=== PATIENT | female | born 1980 | race American Indian/Alaskan Native ===

== ENCOUNTER 2019-09-14 10:26 | Outpatient (CLI) | payer MEDICAID, OTHER ==
[2019-09-14 11:10] VITALS: BP 118/62
[2019-09-14] MEDS ORDERED: LACTATED RINGERS 1,000 ML ONE (11:39)
[2019-09-14] MEDS ORDERED: LACTATED RINGERS 1,000 ML IV ONE (12:00)
[2019-09-14 12:10] LABS: Hematocrit 41.8 % (30.3-42.9); Hemoglobin 13.9 gm/dl (10.1-14.3); Mean Corpuscular HGB Conc 33 % (30-34); Mean Corpuscular Volume 84 fl (79-97); Platelet Count 351 K/mm3 (140-440); Red Blood Count 4.97 M/mm3 (3.65-5.03); Red Cell Distribution Width 14.5 % (13.2-15.2)
[2019-09-14 12:19] LABS: Bilirubin,Urine NEG (Negative); Blood,Urine SM (Negative); Color,Urine Yellow (Yellow); Mucus,Urine FEW /HPF; Protein,Urine <15 mg/dL mg/dL (Negative); Urobilinogen,Urine < 2.0 mg/dL (<2.0); WBC,Urine < 1.0 /HPF (0.0-6.0)
[2019-09-14] MEDS ORDERED: LACTATED RINGERS 1,000 ML IV SCH (13:00)
[2019-09-14] MEDS ORDERED: HYDROcodone/ACETAMINOPHEN 5-325 MG TAB PO PRN (17:11)
[2019-09-14] MEDS ORDERED: ceFAZolin/Water 2 GM/20 ML 0 GM/0 ML SYRINGE IV ONE (17:20)
== END 2019-09-14 18:13 | disposition home or self-care (01) ==
LOC: TRG 10:26
PROVIDERS: ATTEND Obstetrics & Gynecology
DX: O62.9 Abnormality of forces of labor, unspecified (principal); O09.522 Supervision of elderly multigravida, second trimester; O24.410 Gestational diabetes mellitus in pregnancy, diet controlled; Z3A.22 22 weeks gestation of pregnancy
CPT/HCPCS: 36415; 59025; 81001; 85027; 96361; 96365; J0690; J7120; 96360

== ENCOUNTER 2021-09-06 08:32 | Day surgery (SDC) | payer MEDICAID, OTHER ==
[~2021-09-06 08:32] MED LIST: SODIUM CHLORIDE 0.9% 1000 ML 1,000 ML IV SCH
--- NOTE | 2021-09-06 09:20 | Anesthesia Day of Surgery ---
Anesthesia Day of Surgery - Day of Surgery Patient Examined: Yes Patient H&P Reviewed: Yes Patient is NPO: Yes
--- NOTE | 2021-09-06 09:20 | Anesthesia Consultation ---
Anesthesia Consult and Med Hx Date of service: 09/06/21 - Airway Anesthetic Teeth Evaluation: Good ROM Head & Neck: Adequate Mental/Hyoid Distance: Adequate Mallampati Class: Class II Intubation Access Assessment: Good - Pre-Operative Health Status ASA Pre-Surgery Classification: ASA2 Proposed Anesthetic Plan: MAC - Pulmonary Hx Smoking: No Hx Asthma: No - Cardiovascular System Hx Hypertension: No - Central Nervous System Hx Seizures: No Hx Psychiatric Problems: No - Gastrointestinal Hx Ulcer: Yes Hx Gastroesophageal Reflux Disease: No - Endocrine Hx Renal Disease: No Hx Hypothyroidism: No Hx Hyperthyroidism: No - Hematic Hx Anemia: Yes Hx Sickle Cell Disease: No - Other Systems Hx Alcohol Use: Yes (occas social) Hx Obesity: Yes
[2021-09-06] MEDS ORDERED: LIDOCAINE MPF (2%) 20 MG/1 ML VIAL 5 ML ONE (10:03)
[2021-09-06] MEDS ORDERED: propofoL 200 MG/20 ML VIAL IV ONE ×3 (10:04→10:31)
--- NOTE | 2021-09-06 11:07 | Procedure Note ---
Date of procedure: 09/06/21 Pre-op diagnosis: Abdominal Pain and EpigastricPain Post-op diagnosis: other (Mild to Moderate Erosive Esophagitis/ Gastritis/ R/O Celiac disease/ No Peptic Ulcer disease noted/Multiple, Small RectalPolyps (Hyperplastic)/ No Diverticular Disease noted/ R/O Microscopic Colitis/ R/O Il eitis/ Minor,Internal Hemorrhoids) Procedure: EGD with Biopsy and colonoscopy wi Biopsy Anesthesia: [facility] [place] Surgeon: MADISYN SIMS Estimated blood loss: minimal Pathology: list Specimen disposition: to lab Condition: stable Disposition: same day (Treat with prn Bentyl,OTC Probiotic and PPI. Avoid aspirin and NSAID for 5 days; otherwise resume previous medication and F/U in 1 to 2 weeks ([phone]).)
--- NOTE | 2021-09-06 11:32 | Operative Report ---
DATE OF SURGERY: 09/06/2021 PROCEDURE: EGD with biopsy. INDICATIONS: This is a 41-year-old slightly obese -[place] female who has been complaining of epigastric and lower abdominal pain. EGD was done to make sure that there was not any associated peptic ulcer disease present. DESCRIPTION OF PROCEDURE: Procedure was done after getting informed consent with MAC anesthesia. The instrument was passed through the hypopharynx into the esophagus, which showed some [id number] distal erosive esophagitis. Biopsy was done from the distal esophagus to assess for the severity of the erosive esophagitis. The stomach showed gastritis. No ulcers were noted in the straight or the retroverted view. The pylorus was patent. The duodenum in the first and second portion appeared normal. Biopsy was done from the second part of the duodenum to rule out for possible celiac disease. Additional biopsy was done from the gastric antrum, gastric body and angular incisura to rule out for H. pylori and atrophic gastritis. ASSESSMENT: Abdominal pain, epigastric pain, no peptic ulcer disease noted. [id number] erosive esophagitis, gastritis, rule out celiac disease. PLAN: To treat the patient with PPI and also to treat the patient with p.r.n. dose of Bentyl and have the patient to take probiotics [id number]. Avoid aspirin and aspirin-related products for the next few days and to do a colonoscopy for further assessment of the patient's abdominal pain. Procedure was done in the GI lab with assistance of the GI lab team, which included the GI nurse, the pharmacy picking tech and with assistance of anesthesia. TID: [id number] RECEIPT: [id number] HARJEET/MARTIN
--- NOTE | 2021-09-06 11:58 | Operative Report ---
DATE OF SURGERY: 09/06/2021 PROCEDURE PERFORMED: Colonoscopy with biopsy. INDICATIONS: A 41-year-old, slightly obese, -[place]ong[place] female complaining of abdominal pain. EGD done for epigastric pain showed [id number] erosive esophagitis and gastritis. Colonoscopy was done to make sure there was not any significant lower GI pathology present. DESCRIPTION OF PROCEDURE: Procedure was done after getting informed consent with MAC anesthesia. Initial rectal examination was unremarkable. Instrument was passed through the rectum onto the cecum, which was identified with ileocecal valve and appendiceal orifice. Visualization was fair to good. The terminal ileum was intubated, showed normal mucosa. Biopsy was done to rule out for possible ileitis. Cecum, ascending colon, transverse colon, descending colon and sigmoid showed normal mucosa. Random biopsies were done to rule out for possible microscopic colitis. No diverticular disease was noted. Rectum showed multiple small polyps, possibly hyperplastic that were removed by cold biopsy with minimal bleeding and the rectum also showed some minor internal hemorrhoid on the retroverted view. ASSESSMENT: Abdominal pain, multiple small rectal polyps, possibly hyperplastic. No diverticular disease, rule out microscopic colitis, rule out ileitis, minor internal hemorrhoid. PLAN: To treat the patient with PPI because of the EGD findings of esophagitis and gastritis. Also, treat the patient with p.r.n. dose of Bentyl for abdominal pain. Encouraged the patient to take probiotics. Have the patient avoid aspirin and aspirin-related products for the next 5 days; otherwise, resume home medication and follow up in the office in 1-2 weeks' time. Procedure was done in the GI lab with the assistance of the GI lab team, which included the GI nurse, the cable television technician and with assistance of Anesthesia. TID: [id number] RECEIPT: [id number] ZURI
[2021-09-06 12:03] VITALS: BP 120/80
--- NOTE | 2021-09-06 15:22 | Post Anesthesia Evaluation ---
- Post Anesthesia Evaluation Patient Participated: Yes Airway Patent: Yes Stable Respiratory Function: Yes Nausea/Vomiting: No Temp > 96.8F: Yes Pain Manageable: Yes Adequeate Hydration: Yes Anesthesia Complications: No Block Receding Appropriately: Not Applicable Patient on Ventilator: No
== END 2021-09-06 12:20 | disposition home or self-care (01) ==
LOC: GIO 08:32
DX: R10.30 Lower abdominal pain, unspecified (principal); R10.13 Epigastric pain; K52.9 Noninfective gastroenteritis and colitis, unspecified; K64.0 First degree hemorrhoids; K63.89 Other specified diseases of intestine; K21.00 Gastro-esophageal reflux disease with esophagitis, without bleeding; K29.50 Unspecified chronic gastritis without bleeding; K31.89 Other diseases of stomach and duodenum; K63.5 Polyp of colon; E66.9 Obesity, unspecified; Z79.899 Other long term (current) drug therapy; Z98.890 Other specified postprocedural states; Z91.041 Radiographic dye allergy status; Z72.89 Other problems related to lifestyle; Z82.49 Family history of ischemic heart disease and other diseases of the circulatory system; Z83.3 Family history of diabetes mellitus
CPT/HCPCS: 43239; 45380; 81025; 88305; 88342; J2704; J3490; J7030; J7120; Q0162